=== PATIENT | male | born 1935 | race Caucasian/White ===

== ENCOUNTER 2022-07-04 22:33 | Emergency (ER) | payer MEDICARE, BC ==
[~2022-07-04] VITALS: Ht 170.2 cm; Wt 69.1 kg
[2022-07-04 22:36] VITALS: TEMP 97
[2022-07-04 22:56] LABS: BASO # 0.1 K/mm3 (0.0-0.2); BASO % 0.5 % (0.0-2.0); EOS # 0.3 K/mm3 (0.0-0.7); EOS % 2.9 % (0.0-4.0); GRAN # 7.3 K/mm3 (1.4-6.5); GRAN % 77.8 % (42.2-75.2); HEMATOCRIT 40.4 % (42.0-52.0); HEMOGLOBIN 13.5 g/dl (13.5-18.0); LYMPH % 10.6 % (20.0-51.0); MEAN CELL VOLUME 90 fl (80.0-100.0); MEAN CORPUSCULAR HEMOGLOBIN 30 pg (27-31); MEAN CORPUSCULAR HGB CONC 33 g/dl (33.0-37.0); MEAN PLATELET VOLUME 9.9 fl (7.4-10.4); MONO # 0.7 K/mm3 (0.1-0.6); MONO % 7.9 % (1.7-9.3); PLATELET COUNT 223 K/mm3 (130-400); RED BLOOD COUNT 4.48 M/mm3 (4.20-5.60); REDCELL DISTRIBUTION WIDTH-CV 12.7 % (11.5-14.5)
[2022-07-04 23:18] LABS: ALBUMIN 3.6 gm/dL (3.4-4.8); BILIRUBIN,TOTAL 0.4 mg/dL (0.2-1.2); CREATININE, serum 1.18 mg/dL (0.72-1.25); INR 0.9 (0.8-3.0); POTASSIUM 4.1 mmol/L (3.5-4.5); PROTHROMBIN TIME 10.5 SECONDS (9.7-12.8); TOTAL PROTEIN 6.3 gm/dL (6.2-8.1)
[2022-07-04 23:21] LABS: PARTIAL THROMBOPLASTIN TIME 28.2 SECONDS (26.0-37.0)
[2022-07-04 23:28] LABS: TROPONIN-I 0.28 ng/mL (0.00-0.033)
[2022-07-05 02:25] VITALS: BP 126/78; PULSE 61
== END 2022-07-05 02:24 | disposition other institution (70) ==
LOC: COL.ER 22:33
PROVIDERS: Family Medicine
DX: I24.9 Acute ischemic heart disease, unspecified (principal); I10 Essential (primary) hypertension; Z87.891 Personal history of nicotine dependence; Z95.5 Presence of coronary angioplasty implant and graft
CPT/HCPCS: J1644; J7030